=== PATIENT | female | born 1995 | race American Indian/Alaskan Native ===

== ENCOUNTER 2018-08-21 09:13 | Emergency (ER) | payer SELFPAY ==
[2018-08-21] MEDS ORDERED: DECADRON IM ONE (10:31)
[2018-08-21] MEDS ORDERED: PROVENTIL IH ONE (10:31)
--- NOTE | 2018-08-21 10:31 | Emergency Department Report ---
Minor Respiratory - HPI Chief Complaint: Dyspnea/Respdistress Stated Complaint: SOB Time Seen by Provider: 08/21/18 10:31 Duration: 3 Days Pain Location: Chest Severity: mild Minor Respiratory: Yes Able to Tolerate Fluids, Yes Cough, Yes Chest Pain, Yes Shortness of Breath, No Rhinorrhea, No Sore Throat, No Ear Pain, No Sick Contacts, No Hemoptysis, No Fever Other History: pt new to the area and co asthma ae with wheezing. ambulatory in er. talking in completed sentences. no fever. no home meds. denies drugs, etoh or cig use ED Review of Systems ROS: Stated complaint: SOB Other details as noted in HPI Comment: All other systems reviewed and negative Constitutional: denies: chills, malaise Eyes: denies: eye pain ENT: as per HPI, throat pain Respiratory: see HPI, cough Cardiovascular: as per HPI. denies: dyspnea on exertion Endocrine: denies: excessive sweating ED Past Medical Hx - Past Medical History Previous Medical History?: Yes Hx Asthma: Yes - Surgical History Past Surgical History?: No - Social History Smoking Status: Never Smoker Substance Use Type: None - Medications Home Medications: Home Medications Medication Instructions Recorded Confirmed Last Taken Type Albuterol Sulfate [Ventolin HFA] 2 puff IH Q4H PRN #1 hfa.aer.ad 08/21/18 Unknown Rx Azithromycin [Zithromax Z-LEESA] 250 mg PO DAILY #6 tablet 08/21/18 Unknown Rx Cetirizine HCl [ZyrTEC] 10 mg PO DAILY #30 capsule 08/21/18 Unknown Rx Fluticasone [Flonase] 1 spray NS QDAY #1 bottle 08/21/18 Unknown Rx predniSONE [Deltasone] 20 mg PO DAILY #5 tablet 08/21/18 Unknown Rx Minor Respiratory Exam - Exam General: Vital signs noted. No distress. Alert and acting appropriately. HEENT: Yes Pharyngeal Erythema, Yes Moist Mucous Membranes, No Pharyngeal Exudates, No Rhinorrhea, No Conjuctival Injection, No Frontal Tenderness, No Maxillary Tenderness Ear: Neither TM Bulge, Neither TM Erythema, Neither EAC Pain, Neither EAC Discharge Neck: Yes Supple, No Adenopathy Lungs: Yes Good Air Exchange, Yes Wheezes, Yes Cough, No Ronchi, No Stridor, No Labored Respirations, No Retractions, No Use of Accessory Muscles, No Other Abnormal Lung Sounds Heart: Yes Regular, No Murmur Abdomen: Yes Normal Bowel Sounds, No Tenderness, No Peritoneal Signs Skin: No Rash, No Edema Neurologic: Alert and oriented, no deficits. Musculoskeletal: Unremarkable. ED Course Vital Signs 08/21/18 09:26 Temperature 98.7 F Pulse Rate 92 H Respiratory 20 Rate Blood Pressure 135/94 O2 Sat by Pulse 97 Oximetry ED Medical Decision Making - Radiology Data Radiology results: report reviewed, image reviewed - Medical Decision Making VSS no fever medicated in ER ambulatory on dc Critical care attestation.: If time is entered above; I have spent that time in minutes in the direct care of this critically ill patient, excluding procedure time. ED Disposition Clinical Impression: URTI (acute upper respiratory infection), Asthma Disposition: DC TO HOME OR SELFCARE Is pt being admited?: No Does the pt Need Aspirin: No Condition: Stable Instructions: Asthma (ED) Additional Instructions: DIET TOLERATED MEDS ORDERED FOLLOW UP PCP ACTIVITY TOLERATED MOTRIN OR TYLENOL FOR PAIN OR FEVER Prescriptions: predniSONE [Deltasone] 20 mg PO DAILY #5 tablet Fluticasone [Flonase] 1 spray NS QDAY #1 bottle Albuterol Sulfate [Ventolin HFA] 2 puff IH Q4H PRN #1 hfa.aer.ad PRN Reason: Shortness Of Breath Azithromycin [Zithromax Z-LEESA] 250 mg PO DAILY #6 tablet Cetirizine HCl [ZyrTEC] 10 mg PO DAILY #30 capsule Referrals: RICHARD DE ANDA MD [Primary Care Provider] - 3-5 Days Time of Disposition: 11:52
[2018-08-21] MEDS ORDERED: DELTASONE PO ONE (10:57)
[2018-08-21] MEDS ORDERED: DELTASONE ONE (10:57)
--- NOTE | 2018-08-21 11:26 | XRay Report ---
ROUTINE CHEST, TWO VIEWS: HISTORY: Short of breath. The trachea, heart, mediastinal contour, lung wade and bony thorax are unremarkable. Scattered calcified granulomas in the right upper lung are noted. IMPRESSION: Unremarkable chest x-ray.
[2018-08-21 12:08] VITALS: BP 129/75
== END 2018-08-21 12:07 | disposition home or self-care (01) ==
LOC: ED 09:13
DX: J45.909 Unspecified asthma, uncomplicated (principal); J06.9 Acute upper respiratory infection, unspecified; Z88.1 Allergy status to other antibiotic agents
CPT/HCPCS: 71046; 94640; 99283; J1100; J7512

== ENCOUNTER 2018-08-22 07:08 | Emergency (ER) | payer SELFPAY ==
[2018-08-22 07:14] VITALS: BP 144/85
[2018-08-22] MEDS ORDERED: VISTARIL PO ONE (07:59)
--- NOTE | 2018-08-22 08:01 | Emergency Department Report ---
ED Recheck HPI - General Chief Complaint: Upper Respiratory Infection Stated Complaint: RIB PAIN Time Seen by Provider: 08/22/18 07:59 Source: patient Mode of arrival: Ambulatory Limitations: No Limitations - History of Present Illness Initial Comments: Patient was here yesterday and seen for upper respiratory tract infection and asthma. She is from [place] visiting the area and has had some wheezing and upper respiratory signs and symptoms most likely due to the pollen. Patient went home and got anxious about her breathing and her wheezing. She only got some of her medications refilled because she cannot afford them all. She then got on google she comes in today because she said she felt more secure here coming to get appropriate information from one of us. Complaint: other Returns Today for: other - Related Data Previous Rx's Medication Instructions Recorded Last Taken Type Albuterol Sulfate [Ventolin HFA] 2 puff IH Q4H PRN #1 hfa.aer.ad 08/21/18 Unknown Rx Azithromycin [Zithromax Z-LEESA] 250 mg PO DAILY #6 tablet 08/21/18 Unknown Rx Cetirizine HCl [ZyrTEC] 10 mg PO DAILY #30 capsule 08/21/18 Unknown Rx Fluticasone [Flonase] 1 spray NS QDAY #1 bottle 08/21/18 Unknown Rx predniSONE [Deltasone] 20 mg PO DAILY #5 tablet 08/21/18 Unknown Rx Allergies Allergy/AdvReac Type Severity Reaction Status Date / Time acyclovir Allergy Unknown Verified 08/22/18 07:11 amoxicillin Allergy Unknown Verified 08/22/18 07:11 ED Review of Systems ROS: Stated complaint: RIB PAIN Other details as noted in HPI Comment: All other systems reviewed and negative ED Past Medical Hx - Past Medical History Hx Asthma: Yes - Surgical History Past Surgical History?: No - Family History Family history: no significant - Social History Smoking Status: Never Smoker Substance Use Type: None - Medications Home Medications: Home Medications Medication Instructions Recorded Confirmed Last Taken Type Albuterol Sulfate [Ventolin HFA] 2 puff IH Q4H PRN #1 hfa.aer.ad 08/21/18 Unknown Rx Azithromycin [Zithromax Z-LEESA] 250 mg PO DAILY #6 tablet 08/21/18 Unknown Rx Cetirizine HCl [ZyrTEC] 10 mg PO DAILY #30 capsule 08/21/18 Unknown Rx Fluticasone [Flonase] 1 spray NS QDAY #1 bottle 08/21/18 Unknown Rx predniSONE [Deltasone] 20 mg PO DAILY #5 tablet 08/21/18 Unknown Rx ED Physical Exam - General Limitations: No Limitations General appearance: alert, in no apparent distress - Head Head exam: Present: atraumatic, normocephalic - Eye Eye exam: Present: normal appearance, PERRL, EOMI - ENT ENT exam: Present: normal exam, mucous membranes moist - Neck Neck exam: Present: normal inspection, full ROM - Respiratory Respiratory exam: Present: normal lung sounds bilaterally - Cardiovascular Cardiovascular Exam: Present: regular rate, normal rhythm (90 on exam) - GI/Abdominal GI/Abdominal exam: Present: soft, normal bowel sounds - Extremities Exam Extremities exam: Present: normal inspection - Back Exam Back exam: Present: normal inspection - Neurological Exam Neurological exam: Present: alert, oriented X3, normal gait - Psychiatric Psychiatric exam: Present: anxious - Skin Skin exam: Present: warm, dry, intact ED Course Vital Signs 08/22/18 07:11 Temperature 98.7 F Pulse Rate 107 H Respiratory 16 Rate Blood Pressure 144/85 O2 Sat by Pulse 98 Oximetry ED Recheck MDM - Core Measures Measure Exclusions: not indicated - Medical Decision Making Pt has been reassured that she is not dying. I explained to her [place] much [place] and not in [place]. She is ambulatory. NO chest pain. She would not talk in triage because she read on google it would use her air. She was talking in full sentences without shortness of breath with me. We had a candid discussion about her dramatic presentation and wide along the triage nurses. I reassured her that she was okay and not dying. I encouraged her and gave her good Rx car to get her additional medications refilled. We discussed other measures that she could take with the high pollen counts. She has been given a referral to a amusement equipment operator. Patient's vital signs are stable she is normotensive. On exam her heart rate is 100. Her oxygen saturation on room air on a provider exam is 100%. She is not wheezing. She has no fever. Triage nurses were concerned that the patient was potentially in a situation where she was afraid to talk. I examined her alone and she states that she is not being harmed, she is safe at home, and she doesn't have other concerns that she did not want to share in front of her family. PMH ASTHMA PSH NONE RX NONE FAMILY HX OF ASTHMA NON SMOKER Critical care attestation.: If time is entered above; I have spent that time in minutes in the direct care of this critically ill patient, excluding procedure time. ED Disposition Clinical Impression: URTI (acute upper respiratory infection), Anxiety Disposition: - TO HOME OR SELFCARE Is pt being admited?: No Does the pt Need Aspirin: No Condition: Stable Instructions: Asthma (ED), Allergies (ED) Additional Instructions: rest hydrate well with water meds as ordered get others when you have the money cool mist humidifier pulmonology MD as we discussed see below Referrals: MO CERON MD [Staff Physician] - 3-5 Days Time of Disposition: 07:59
== END 2018-08-22 08:17 | disposition home or self-care (01) ==
LOC: ED 07:08
DX: J06.9 Acute upper respiratory infection, unspecified (principal); F41.9 Anxiety disorder, unspecified; J45.909 Unspecified asthma, uncomplicated
CPT/HCPCS: 99282; Q0177